=== PATIENT | male | born 1975 | race Caucasian/White ===

== ENCOUNTER 2017-07-03 17:10 | Emergency (ER) | payer BC ==
[2017-07-03 17:36] VITALS: BP 142/87; PULSE 97; RESP 18; TEMP 97.3
[2017-07-03] MEDS ORDERED: Acetaminophen-Codeine 300-30mg TAB PO STA (18:05)
--- NOTE | 2017-07-03 18:14 | ED ---
General Adult HPI - General Chief complaint: Wound/Laceration Stated complaint: LAC RT LEG FROM LAWNMOWER Time Seen by Provider: 07/03/17 18:00 Source: patient, RN notes reviewed Mode of arrival: wheelchair Limitations: no limitations - History of Present Illness Initial comments: 42-year-old male sent to the emergency room for a chief complaint of laceration to the right leg. Patient states he was trying to pull his trailer out of the mud when he slipped and cut his right leg. Patient states it is painful. Patient states it bled a lot so he made a tourniquet out of his shirt. Patient did not sustain any other injuries. Patient did not hit his head or lose consciousness. Patient has no other complaints at this time including shortness of breath, chest pain, abdominal pain, nausea or vomiting, headache, or visual changes. - Related Data Previous Rx's Medication Instructions Recorded Cephalexin [Keflex] 500 mg PO Q12HR #20 cap 07/03/17 Allergies Allergy/AdvReac Type Severity Reaction Status Date / Time acetaminophen [From Vicodin] Allergy Nausea Verified 07/03/17 17:36 hydrocodone [From Vicodin] Allergy Nausea Verified 07/03/17 17:36 Review of Systems ROS Statement: Those systems with pertinent positive or pertinent negative responses have been documented in the HPI. ROS Other: All systems not noted in ROS Statement are negative. Past Medical History Past Medical History: No Reported History History of Any Multi-Drug Resistant Organisms: None Reported Past Surgical History: No Surgical Hx Reported Additional Past Surgical History / Comment(s): eye Past Psychological History: No Psychological Hx Reported Smoking Status: Never smoker Past Alcohol Use History: Occasional Past Drug Use History: None Reported General Exam Limitations: no limitations General appearance: alert, in no apparent distress Respiratory exam: Present: normal lung sounds bilaterally. Absent: respiratory distress, wheezes, rales, rhonchi, stridor Cardiovascular Exam: Present: regular rate, normal rhythm, normal heart sounds. Absent: systolic murmur, diastolic murmur, rubs, gallop, clicks Extremities exam: Present: full ROM (Full range of motion of the right ankle and right knee.), tenderness (Tenderness to the laceration site), normal capillary refill (Refill less than 2 seconds and pedal pulse 2+), other (There is a flap-like laceration about 4 cm on the right anterior lower leg. There is a slight chip injury to the bone. small portion of tibia is exposed through laceration.). Absent: pedal edema, joint swelling Course Vital Signs 07/03/17 17:33 Temperature 97.3 F L Pulse Rate 97 Respiratory 18 Rate Blood Pressure 142/87 O2 Sat by Pulse 97 Oximetry Procedures - Procedures Initial comment: Body area: Anterior right lower leg Laceration length: 4 cm Foreign bodies: small amount of dirt noted Tendon involvement: none Nerve involvement: none Bone involvement: Vascular damage: no Anesthesia: local infiltration Local anesthetic: 5 mL 1% lidocaine Preparation: Patient was prepped and draped in the usual sterile fashion. Irrigation solution: sterile water Irrigation method: 1 liter sterile water jet lavage Skin closure:4-0 Ethilon using sterile technique Number of sutures: 12 Technique: interupted Dressing: antibiotic ointment/ gauze Patient tolerance: Patient tolerated the procedure well with no immediate complications. Medical Decision Making - Medical Decision Making 42-year-old male presents to the emergency department for a chief complaint of laceration to the right lower leg. Tetanus updated about 5 years ago. Patient cut his leg on his trailer. On exam patient has a flap-like laceration about 4 cm in the right anterior tib-fib. Full range of motion in the foot and knee. Pedal pulse 2+ and capillary refill less than 2 seconds. Sensation intact in the right lower extremity. According to the radiologist x-ray demonstrates no acute fracture or abnormality however when looked at with Dr. Gamble there is a small deformity noted on the tibia. The wound was irrigated with a liter of sterile water and cleaned out significantly. Wound was stitched with 12 sutures. Patient was given Ancef and a tetanus shot in the emergency determine. He will Continue Keflex outpatient. He will follow up with orthopedics in one to 2 days. He will return to the emergency department if he has any worsening symptoms. He will return in 7-10 days to have sutures removed. Disposition Clinical Impression: Laceration Disposition: HOME SELF-CARE Condition: Good Instructions: Care For Your Stitches (ED), Laceration (ED) Additional Instructions: Please take Motrin and Tylenol for pain. Take antibiotic as directed. Please follow-up with orthopedics in one to 2 days. Please return to the emergency department if you have any worsening symptoms or signs of infection as discussed. Prescriptions: Cephalexin [Keflex] 500 mg PO Q12HR #20 cap Is patient prescribed a controlled substance at d/c from ED?: No Referrals: Daniel Buchanan MD [Primary Care Provider] - 1-2 days Manjinder Chowdary DO [Doctor of Osteopathic Medicine] - 1-2 days Time of Disposition: 19:40
[2017-07-03] MEDS ORDERED: ceFAZolin 1,000 MG VIAL IM STA (18:52)
[2017-07-03] MEDS ORDERED: DIPH,PERTUS(ACELL)TETVAC-LF 0.5 ML VIAL IM ONE (18:56)
--- NOTE | 2017-07-03 19:10 | XR ---
EXAMINATION TYPE: XR tibia fibula RT DATE OF EXAM: 07/03/2017 COMPARISON: NONE HISTORY: Laceration and pain TECHNIQUE: 4 views FINDINGS: There is an Achilles calcaneal spur. I see no fracture nor dislocation. There is laceration deformity of the skin on the anterior mid tibia. IMPRESSION: No fracture. Laceration deformity. Calcaneal spurring.
== END 2017-07-03 20:01 | disposition home or self-care (01) ==
LOC: EC 17:10
DX: S81.811A Laceration without foreign body, right lower leg, initial encounter (principal); Z88.5 Allergy status to narcotic agent; Z88.8 Allergy status to other drugs, medicaments and biological substances; Z23 Encounter for immunization; W30.89XA Contact with other specified agricultural machinery, initial encounter; Y93.89 Activity, other specified; Y92.89 Other specified places as the place of occurrence of the external cause
CPT/HCPCS: 73590; 90715; 99283; 12002; 96372; 90471; J0690

== ENCOUNTER 2020-06-01 18:14 | Emergency (ER) | payer BC ==
[2020-06-01 18:20] VITALS: TEMP 98.3
[2020-06-01 19:28] LABS: Basophils % (A) 1 %; Eosinophils # (A) 0.1 k/uL (0-0.7); Eosinophils % (A) 3 %; HGB 15.6 gm/dL (13.0-17.5); Lymphocytes # (A) 0.8 k/uL (1.0-4.8); Lymphocytes % (A) 23 %; MCHC 35.3 g/dL (31.0-37.0); MCV 87.6 fL (80.0-100.0); Mean Platelet Volume 8.7; Monocytes # (A) 0.4 k/uL (0-1.0); Monocytes % (A) 14 %; Neutrophils # (A) 1.8 k/uL (1.3-7.7); Neutrophils % (A) 55 %; Platelet Count 161 k/uL (150-450); RBC 5.02 m/uL (4.30-5.90); RDW 11.8 % (11.5-15.5); WBC 3.3 k/uL (3.8-10.6)
[2020-06-01 19:45] LABS: ALT 56 U/L (4-49); AST 40 U/L (17-59); African American GFR (CKD) >90 (>60 ml/min/1.73 sqM); Albumin 4.2 g/dL (3.5-5.0); Alkaline Phosphatase 35 U/L (38-126); Anion Gap 9 mmol/L; Blood Urea Nitrogen 14 mg/dL (9-20); C Reactive Protein 1.3 mg/dL (<1.0); Calcium 9.2 mg/dL (8.4-10.2); Carbon Dioxide 27 mmol/L (22-30); Chloride 98 mmol/L (98-107); Glucose 113 mg/dL (74-99); LDH 538 U/L (313-618); Non-African American GFR(CKD) >90 (>60 ml/min/1.73 sqM); Potassium 3.8 mmol/L (3.5-5.1); Sodium 134 mmol/L (137-145); Total Bilirubin 0.4 mg/dL (0.2-1.3); Total Protein 6.9 g/dL (6.3-8.2)
[2020-06-01 19:50] LABS: D-Dimer 0.38 mg/L FEU (<0.60); INR 0.9 (<1.2); Partial Thromboplastin Time 26.8 sec (22.0-30.0); Prothrombin Time 10.2 sec (9.0-12.0)
--- NOTE | 2020-06-01 20:11 | ED ---
SOB HPI - General Chief Complaint: Shortness of Breath Stated Complaint: Covid Positive,LAURIE Time Seen by Provider: 06/01/20 18:26 Source: patient Mode of arrival: ambulatory Limitations: no limitations - History of Present Illness Initial Comments: 45-year-old male past medical history of asthma presents emergency Department with reported shortness of breath. Patient has been symptomatic for the past 7 days. Was tested for Covid 5 days ago and it came back positive. States he has not been on any treatment. Patient admits to a history of mild asthma. Only uses an inhaler when needed. Never hospitalized. He denies any chest pain. No nausea, vomiting or diarrhea. No other alleviating, precipitating or modifying factors - Related Data Home Medications Medication Instructions Recorded Confirmed Albuterol Inhaler [Ventolin Hfa 2 puff INHALATION RT-QID PRN 06/01/20 06/01/20 Inhaler] Ascorbic Acid [Vitamin C] 1,000 mg PO DAILY 06/01/20 06/01/20 Zinc 50 mg PO DAILY 06/01/20 06/01/20 Previous Rx's Medication Instructions Recorded Albuterol Inhaler [Ventolin Hfa 2 puff INHALATION RT-QID #1 inhaler 06/01/20 Inhaler] Dexamethasone [Decadron] 6 mg PO DAILY #5 tablet 06/01/20 Allergies Allergy/AdvReac Type Severity Reaction Status Date / Time hydrocodone [From Vicodin] Allergy Nausea Verified 06/01/20 20:06 Review of Systems ROS Statement: Those systems with pertinent positive or pertinent negative responses have been documented in the HPI. ROS Other: All systems not noted in ROS Statement are negative. Past Medical History Past Medical History: Asthma Additional Past Medical History / Comment(s): sleep apnea History of Any Multi-Drug Resistant Organisms: None Reported Past Surgical History: No Surgical Hx Reported Additional Past Surgical History / Comment(s): eye Past Psychological History: No Psychological Hx Reported Smoking Status: Never smoker Past Alcohol Use History: Occasional Past Drug Use History: None Reported General Exam Limitations: no limitations Course Vital Signs 06/01/20 06/01/20 06/01/20 18:17 18:53 20:47 Temperature 98.3 F Pulse Rate 103 H 83 Respiratory 20 22 18 Rate Blood Pressure 155/93 162/89 O2 Sat by Pulse 98 97 Oximetry Medical Decision Making - Medical Decision Making Upon arrival patient is placed in room 17. Fluorescein physical exam was performed. Laboratory studies were conducted chest x-ray was performed. The patient maintained saturations of 97 and 98%. Chest x-ray demonstrates mild patchy airspace opacities. Patient does not qualify for BAM at this time. He will be treated with steroids because his history of asthma. Patient given a prescription for an inhaler. He is to follow-up with his primary care doctor in 2-4 days. Return to the emergency room for any new or worsening symptoms. Patient was discharged in stable condition - Lab Data Result diagrams: 06/01/20 18:50 06/01/20 18:50 Lab Results 06/01/20 06/01/20 06/01/20 Range/Units 18:50 18:50 18:50 WBC 3.3 L (3.8-10.6) k/uL RBC 5.02 (4.30-5.90) m/uL Hgb 15.6 (13.0-17.5) gm/dL Hct 44.0 (39.0-53.0) % MCV 87.6 (80.0-100.0) fL MCH 31.0 (25.0-35.0) pg MCHC 35.3 (31.0-37.0) g/dL RDW 11.8 (11.5-15.5) % Plt Count 161 (150-450) k/uL MPV 8.7 Neutrophils % 55 % Lymphocytes % 23 % Monocytes % 14 % Eosinophils % 3 % Basophils % 1 % Neutrophils # 1.8 (1.3-7.7) k/uL Lymphocytes # 0.8 L (1.0-4.8) k/uL Monocytes # 0.4 (0-1.0) k/uL Eosinophils # 0.1 (0-0.7) k/uL Basophils # 0.0 (0-0.2) k/uL PT 10.2 (9.0-12.0) sec INR 0.9 (<1.2) APTT 26.8 (22.0-30.0) sec D-Dimer 0.38 (<0.60) mg/L FEU Sodium 134 L (137-145) mmol/L Potassium 3.8 (3.5-5.1) mmol/L Chloride 98 (98-107) mmol/L Carbon Dioxide 27 (22-30) mmol/L Anion Gap 9 mmol/L BUN 14 (9-20) mg/dL Creatinine 0.86 (0.66-1.25) mg/dL Est GFR (CKD-EPI)AfAm >90 (>60 ml/min/1.73 sqM) Est GFR (CKD-EPI)NonAf >90 (>60 ml/min/1.73 sqM) Glucose 113 H (74-99) mg/dL Plasma Lactic Acid James (0.7-2.0) mmol/L Calcium 9.2 (8.4-10.2) mg/dL Magnesium 2.0 (1.6-2.3) mg/dL Total Bilirubin 0.4 (0.2-1.3) mg/dL AST 40 (17-59) U/L ALT 56 H (4-49) U/L Alkaline Phosphatase 35 L (38-126) U/L Lactate Dehydrogenase 538 (313-618) U/L C-Reactive Protein 1.3 H (<1.0) mg/dL Total Protein 6.9 (6.3-8.2) g/dL Albumin 4.2 (3.5-5.0) g/dL 06/01/20 Range/Units 18:50 WBC (3.8-10.6) k/uL RBC (4.30-5.90) m/uL Hgb (13.0-17.5) gm/dL Hct (39.0-53.0) % MCV (80.0-100.0) fL MCH (25.0-35.0) pg MCHC (31.0-37.0) g/dL RDW (11.5-15.5) % Plt Count (150-450) k/uL MPV Neutrophils % % Lymphocytes % % Monocytes % % Eosinophils % % Basophils % % Neutrophils # (1.3-7.7) k/uL Lymphocytes # (1.0-4.8) k/uL Monocytes # (0-1.0) k/uL Eosinophils # (0-0.7) k/uL Basophils # (0-0.2) k/uL PT (9.0-12.0) sec INR (<1.2) APTT (22.0-30.0) sec D-Dimer (<0.60) mg/L FEU Sodium (137-145) mmol/L Potassium (3.5-5.1) mmol/L Chloride (98-107) mmol/L Carbon Dioxide (22-30) mmol/L Anion Gap mmol/L BUN (9-20) mg/dL Creatinine (0.66-1.25) mg/dL Est GFR (CKD-EPI)AfAm (>60 ml/min/1.73 sqM) Est GFR (CKD-EPI)NonAf (>60 ml/min/1.73 sqM) Glucose (74-99) mg/dL Plasma Lactic Acid James 1.2 (0.7-2.0) mmol/L Calcium (8.4-10.2) mg/dL Magnesium (1.6-2.3) mg/dL Total Bilirubin (0.2-1.3) mg/dL AST (17-59) U/L ALT (4-49) U/L Alkaline Phosphatase (38-126) U/L Lactate Dehydrogenase (313-618) U/L C-Reactive Protein (<1.0) mg/dL Total Protein (6.3-8.2) g/dL Albumin (3.5-5.0) g/dL - EKG Data EKG Comments: EKG demonstrates a sinus rhythm with a ventricular rate of 85.. NC interval 15 4. QRS 88. QTC 428. No acute ST segment elevations or depressions concerning for ischemic changes Disposition Clinical Impression: COVID-19 Disposition: HOME SELF-CARE Condition: Stable Instructions (If sedation given, give patient instructions): Coronavirus Disease 2019 (COVID-19) Additional Instructions: Please follow-up with your primary care doctor in 2-4 days. Return to the emergency room for any new or worsening symptoms Prescriptions: Dexamethasone [Decadron] 6 mg PO DAILY #5 tablet Albuterol Inhaler [Ventolin Hfa Inhaler] 2 puff INHALATION RT-QID #1 inhaler Is patient prescribed a controlled substance at d/c from ED?: No Referrals: Daniel Buchanan MD [Primary Care Provider] - 1-2 days Time of Disposition: 20:37
--- NOTE | 2020-06-01 20:13 | XR ---
EXAMINATION TYPE: XR chest 1V portable DATE OF EXAM: 06/01/2020 CLINICAL HISTORY: Suspected COVID-19 pneumonia. Shortness of breath. TECHNIQUE: Portable frontal view of the chest. COMPARISON: None FINDINGS: The cardiomediastinal silhouette is within normal limits for size. Pulmonary vasculature i s normal. Minimal patchy focal airspace opacities of the right peripheral lungs. No pleural effusion . No pneumothorax seen. No acute displaced osseous fracture. IMPRESSION: Very minimal patchy airspace opacities of the right peripheral lung. Findings may represent infectiou s or inflammatory pneumonitis, including Covid 19.
[2020-06-01] MEDS ORDERED: DEXAMETHASONE SOD PHOSPHATE 10 MG/ML 1 ML VIAL IV STA (20:37)
[2020-06-01 20:50] VITALS: BP 162/89; PULSE 83; RESP 18
== END 2020-06-01 20:54 | disposition home or self-care (01) ==
LOC: EC 18:14
DX: U07.1 COVID-19 (principal); J45.909 Unspecified asthma, uncomplicated; G47.30 Sleep apnea, unspecified; Z79.51 Long term (current) use of inhaled steroids
CPT/HCPCS: 36415; 93005; 85379; 80053; 83605; 83615; 83735; 85025; 85610; 85730; 86140; 84145; 71045; 99285; 96374; J1100